=== PATIENT | male | born 1960 | race Caucasian/White ===

== ENCOUNTER 2020-03-22 16:42 | Outpatient (CLI) | payer OTHER | END 2020-03-22 16:43 | disposition home or self-care (01) | LOC: DI 16:42 | PROVIDERS: ATTEND Family Medicine | DX: M54.9 Dorsalgia, unspecified (principal); Z53.9 Procedure and treatment not carried out, unspecified reason ==

== ENCOUNTER 2020-03-24 10:04 | Outpatient (CLI) | payer OTHER ==
--- NOTE | 2020-03-26 10:55 | MRI Report ---
PROCEDURE: Lumbar Spine W/O INDICATIONS: DORSALGIA TECHNIQUE: Noncontrast sagittal T1 spin echo and T2 fast echo, sagittal STIR, axial T1 and T2 fast spin echo thr ough the lumbar spine. In cases with scoliosis, additional coronal T2 fast spin echo may be performe d. COMPARISON: None. FINDINGS: Image quality: Excellent. Alignment and Curvature: There is normal bony alignment. Bone Marrow: Marrow is of normal overall signal. Scattered foci of T1-weighted hyperintensity and T2-weighted hyperintensity are seen, without increased STIR signal. These foci are attributed to cosme gn vertebral body hemangiomas. No acute vertebral body compression fractures. Spinal Cord: Conus medullaris terminates at the L1 level. Visualized cord demonstrates normal signa l and size. Paraspinous Soft Tissues: No paravertebral masses. T11-T12: Mild to moderate loss of disc height and disc signal can be seen. Likely mild bridging anter ior osteophytes are partially seen. No significant neural foraminal or central canal narrowing can b e seen. T12-L1: The disc height is well-preserved. There is loss of disc signal seen. No significant neural foraminal or central canal narrowing can be seen. L1-L2: The disc height is well-preserved. There is loss of disc signal seen. No significant kelsi ral foraminal or central canal narrowing can be seen. L2-L3: The disc height is well-preserved. There is loss of disc signal seen. No significant neura l foraminal or central canal narrowing can be seen. The disc height is well-preserved. There is lo ss of disc signal seen. Minimal disc bulge is seen. Mild facet hypertrophy is seen. There is mild right-sided and minimal left-sided neuroforaminal narrowing seen. No significant central canal narrow ing is seen. L3-L4: The disc height is well-preserved. There is loss of disc signal seen. Mild to moderate disc b ulge is seen, which is eccentric to the right. There is mild to moderate right-sided and no significa nt left-sided neuroforaminal narrowing seen. Minimal central canal narrowing is seen. L4-L5: Mild to moderate loss of disc height and disc signal are seen. Moderate disc bulge is seen, which is eccentric to the left. There is a disc extrusion seen involving the left foraminal region, w hich is best seen on series 701 image 18. Moderate facet hypertrophy is seen, left worse than right. There is at least moderate right-sided and moderate to severe left-sided neuroforaminal narrowing see n. There is a degree of compression seen upon the exiting left L4 nerve root. L5-S1: The disc height is well-preserved. There is loss of disc signal seen. Minimal disc bulge is seen. Mild facet hypertrophy is seen. No significant neural foraminal or central canal narrowing c an be seen. IMPRESSION: At the L4-L5 level, there is a left foraminal disc extrusion, with associated compressio n upon the exiting left L4 nerve root. Milder degenerative changes are seen elsewhere. Reviewed by: Jose Armando Metzger MD on 03/26/2020 9:54 AM [facility] Approved by: Jose Armando Metzger MD on 03/26/2020 9:54 AM [facility] Station ID: [id number]
== END 2020-03-24 10:05 | disposition home or self-care (01) ==
LOC: DI 10:04
PROVIDERS: ATTEND Family Medicine
DX: M51.36 Other intervertebral disc degeneration, lumbar region (principal); M51.26 Other intervertebral disc displacement, lumbar region
CPT/HCPCS: 72148